=== PATIENT | male | born 1960 | race African-American/Black ===

== ENCOUNTER 2018-05-24 21:42 | Emergency (ER) | payer OTHER ==
[2018-05-24] MEDS ORDERED: ACETAMINOPHEN 325 MG TABLET PO ONE (21:46)
[2018-05-24 21:54] VITALS: BP 131/69
--- NOTE | 2018-05-24 22:21 | RADIOLOGY REPORT (SQ) ---
EXAM DESCRIPTION: XR ELBOW 3 VIEWS COMPLETED DATE/TME: 05/24/2018 21:45 CLINICAL HISTORY: 58 years, Male, right elbow pain after putting up gutter guards COMPARISON: None. NUMBER OF VIEWS: 4 TECHNIQUE: 4 view right elbow LIMITATIONS: None. FINDINGS: Negative for fracture or dislocation. Small olecranon spur. Minor posterior soft tissue swelling posteriorly. No joint effusion IMPRESSION: Small olecranon spur with minor soft tissue swelling posteriorly could reflect mild olecranon bursitis copyright 2010 [employer]- All Rights Reserved
[2018-05-25] MEDS ORDERED: KETOROLAC TROMETHAMINE 60 MG/2 ML SDV IM ONE
[2018-05-25] MEDS ORDERED: OXYCODONE-ACETAMINOPHEN 5-325 MG TABLET PO ONE (00:01)
--- NOTE | 2018-05-25 00:37 | ER Document Report ---
ED Extremity Problem, Upper - General Chief Complaint: Elbow Injury Stated Complaint: RIGHT ELBOW PAIN Time Seen by Provider: 05/24/18 23:45 Mode of Arrival: Ambulatory Information source: Patient Notes: Patient is a 38-year-old male comes emergency room complaining of severe right elbow pain. Patient is complaining of severe onset of right elbow pain since earlier this evening. He states he was out putting up gutter guards on the house and he had to do a lot of squeezing with his right hand and lifting and supporting with his right arm and elbow and the pain started to hurt him early in the day but he did not listen to his body and continued to push through it. Towards the end of the evening the pain was getting to the point where he could not hardly make a gripping motion. He also states that back in September he had a rotator cuff problem with the shoulder and MRI was done by the [facility] he informed him that he had a little twinge in his arm at that point in the association he made with a cane from the shoulder. The surgeon or orthopedist stated that now is probably epicondylitis and that this is probably from overuse. He gave it a rest for a few days and got better and has been tweaking off and on with discomfort ever since then. Today was the first day that is so bad he could not take the pain anymore. Patient is ex- and as per "stubborn". TRAVEL OUTSIDE OF THE [place] IN LAST 30 DAYS: No - Related Data Allergies/Adverse Reactions: No Known Allergies Allergy (Unverified 05/24/18 21:43) Past Medical History - General Information source: Patient - Social History Smoking Status: Never Smoker Cigarette use (# per day): No Chew tobacco use (# tins/day): No Smoking Education Provided: No Frequency of alcohol use: Rare Drug Abuse: None Lives with: Family Family History: Reviewed & Not Pertinent Patient has suicidal ideation: No Patient has homicidal ideation: No - Past Medical History Cardiac Medical History: Reports: Hx Hypercholesterolemia, Hx Hypertension Endocrine Medical History: Reports: Hx Diabetes Mellitus Type 2 Renal/ Medical History: Denies: Hx Peritoneal Dialysis Review of Systems - Review of Systems Constitutional: No symptoms reported EENT: No symptoms reported Cardiovascular: No symptoms reported Respiratory: No symptoms reported Gastrointestinal: No symptoms reported Genitourinary: No symptoms reported Male Genitourinary: No symptoms reported Musculoskeletal: See HPI, Joint pain, Joint swelling, Muscle pain Skin: No symptoms reported Hematologic/Lymphatic: No symptoms reported Neurological/Psychological: No symptoms reported -: Yes All other systems reviewed and negative Physical Exam - Vital signs Vitals: Temp Pulse Resp BP Pulse Ox 97.9 F 66 18 131/69 H 96 05/24/18 21:53 05/24/18 21:53 05/24/18 21:53 05/24/18 21:53 05/24/18 21:53 Interpretation: Hypertensive - Notes Notes: PHYSICAL EXAMINATION: GENERAL: Patient is a well-nourished well-developed 58-year-old male who is in excellent physical shape. He is in no apparent distress but is in obvious discomfort. HEAD: Atraumatic, normocephalic NECK: Normal range of motion, supple without lymphadenopathy LUNGS: Breath sounds clear to auscultation bilaterally and equal. No wheezes rales or rhonchi. HEART: Regular rate and rhythm without murmurs Musculoskeletal: Patient's area of concern is his right elbow. Examination shows that he has severe point tenderness on the lateral epicondyle area. To the point where light touch causes him to jerk away secondary to pain. He has full range of motion with extension it helps him to support the arm and the fact that the discomfort and pain is less with the support and let gravity hold it. Any type of rotation also increases discomfort and pain. 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 More so with rotation inward. He has good vascular exam of the upper right extremity he has no pain or discomfort at the shoulder level. All the discomfort is at the elbow and in the forearm running along the extensor tendon along the little finger line. NEUROLOGICAL: Normal speech, normal gait. Normal sensory, motor exams PSYCH: Normal mood, normal affect. SKIN: Warm, Dry, normal turgor, no rashes or lesions noted. Course - Re-evaluation Re-evalutation: 05/25/18 00:43 Patient's x-rays showed a bone spur on the olecranon right elbow. Which the soft tissue swelling could possibly reflect an olecranon bursitis. Versus a epicondylitis kind of presentation. Elected to place patient in a posterior long splint because he is a very difficult patient and the fact that the said if we do not immobilize it he will use it. Patient agreed with this philosophy as well and agreed to let me put him in a posterior OCL for comfort purposes mostly. We did also had a sling so he would not be holding the gravity. He will contact orthopedist to see if there is anything I can do about this bone spur that is most likely causing all the problems. He can remove the splint at any time and use a sling for comfort as well. 05/25/18 00:44 05/25/18 00:45 - Vital Signs Vital signs: Temp Pulse Resp BP Pulse Ox 97.9 F 66 18 131/69 H 96 05/24/18 21:53 05/24/18 21:53 05/24/18 21:53 05/24/18 21:53 05/24/18 21:53 Procedures - Immobilization Right Elbow Time completed: 00:45 Pre-Proc Neuro Vasc Exam: Normal Immobilizer type: Long arm posterior Performed by: PCT Post-Proc Neuro Vasc Exam: Normal Alignment checked and good: Yes Discharge - Discharge Clinical Impression: Olecranon bursitis of right elbow, Olecranon bone spur, Lateral epicondylitis, right elbow Condition: Stable Disposition: HOME, SELF-CARE Instructions: Olecranon Bursitis ([facility]), Tennis Elbow (Lateral Epicondylitis) ([facility]) Additional Instructions: Olecranon Bursitis You have olecranon bursitis. This is an inflammation of a fluid pouch (bursa) found over the tip of the elbow. This is usually due to repeated minor irritation or pressure directly on the bursa. On occasion, the bursitis can be due to infection (your doctor has checked for this). Sometimes the doctor decides to remove the fluid from the bursa with a needle. This may be done to check for infection or to ease the pressure caused by the fluid. The usual treatment is rest, local warmth, (or cold if the bursitis is caused by an acute injury), and antiinflammatory medication. Occasionally, an injection of cortisone is necessary. This type of bursitis can become very red and swollen WITHOUT any infection being present. However if pain increases significantly, if the swelling and redness greatly increase, or if you develop fever, you should call the doctor or return for re-examination. As we discussed he can leave the splint in in place for 2-3 days. You may take it off to take a shower and replace it as we have instructed you on how to do so. You can ice down through this by applying a plastic bag over the elbow and ice above and below and let it sit for an hour. Medication as prescribed. Monitor your blood sugars as we discussed. I am giving the name of the orthopedist concrete carpenter gab may contact his office to see if he can accommodate you. This should be a relatively simple thing to fix if you contact somebody to do so. Should you have any concerns or problems return to ER for recheck. Prescriptions: Oxycodone HCl/Acetaminophen [Percocet 5-325 mg Tablet] 1 tab PO Q4H PRN #15 tablet PRN Reason: Prednisone 5 mg PO ASDIR PRN 6 Days #1 tab.ds.pk PRN Reason: Forms: Elevated Blood Pressure Referrals: JUD LEONE MD [ACTIVE STAFF] - Follow up as needed
== END 2018-05-25 01:09 | disposition home or self-care (01) ==
LOC: ER 21:42
DX: M70.21 Olecranon bursitis, right elbow (principal); M77.8 Other enthesopathies, not elsewhere classified; Y93.H3 Activity, building and construction
CPT/HCPCS: 99283; 96372; 73080; 29105; J1885